=== PATIENT | female | born 1965 | race African-American/Black ===

== ENCOUNTER 2018-08-26 12:56 | Inpatient (IN) | payer BC ==
[~2018-08-26] VITALS: Ht 162.6 cm; Wt 88.9 kg
[2018-08-26] MEDS ORDERED: METHYLPREDNISOLONE SOD SUCC 125 MG/2 ML VIAL IV STA (13:21)
[2018-08-26] MEDS ORDERED: IPRATROPIUM BROMIDE (0.02%) 0.5MG/2.5ML NEB HHN STA (13:21)
[2018-08-26] MEDS ORDERED: ALBUTEROL (0.083%) 2.5MG/3ML NEB HHN STA (13:21)
[2018-08-26] MEDS ORDERED: ADENOSINE 3 MG/ML 2ML VIAL IV ONE (14:10)
[2018-08-26 15:13] LABS: BASOPHILS % 0.4 % (0.0-2.0); EOSINOPHILS % 0.3 % (0.0-5.0); HEMATOCRIT. 42.7 % (36.0-48.0); HEMOGLOBIN. 14.4 g/dL (12.0-16.0); LYMPHOCYTES % 8.2 % (20.0-50.0); MEAN CORPUSCULAR HEMOGLOBIN 28.1 pg (28.0-32.0); MEAN CORPUSCULAR VOLUME 83.6 fL (81.0-99.0); MEAN PLATELET VOLUME 8.9 fl (7.4-10.4); MONOCYTES % 7.6 % (2.0-8.0); NEUTROPHILS % 83.5 % (40.0-76.0); PLATELET 266 x1000/uL (130-400); RED BLOOD CELL COUNT 5.11 mill/uL (4.2-5.4); RED CELL DISTRIBUTION WIDTH 14.3 % (11.6-14.6)
[2018-08-26 15:21] LABS: CHLORIDE 110 mEq/L (98-107)
[2018-08-26 15:31] LABS: HCG SCREEN NEGATIVE
[2018-08-26] MEDS ORDERED: AZTREONAM 2 GM in DEXT 5% WATER 100 ML IV SCH (15:45)
[2018-08-26] MEDS: POTASSIUM CHLORIDE 20MEQ TABLET SR PO NR ×2 (15:45→17:04)
[2018-08-26] MEDS ORDERED: VANCOMYCIN 5MG/ML SYR IV ONE (15:45)
[2018-08-26] MEDS ORDERED: SODIUM CHLORIDE 0.9% 1000ML BAG (SEPSIS BOLUS) IV ONE (15:45)
[2018-08-26] MEDS ORDERED: VANCOMYCIN 1,750 MG in DEXT 5% WATER 250 ML IV NR (16:00)
[2018-08-26] MEDS ORDERED: SODIUM CHLORIDE 0.9% 2,100 ML IV SCH (16:00)
[2018-08-26] MEDS ORDERED: ASPIRIN 325MG EC TABLET PO ONE (16:15)
[2018-08-26 20:00] VITALS: BP 130/69
[2018-08-26] MEDS ORDERED: VANCOMYCIN 1 G PREMIX 200 ML IV SCH (20:45)
[2018-08-26 20:47] LABS: CLARITY URINE CLEAR (CLEAR); COLOR URINE YELLOW (YELLOW); KETONES URINE NEGATIVE (NEGATIVE); LEUKOCYTE ESTERASE URINE NEGATIVE (NEGATIVE); NITRITE URINE NEGATIVE (NEGATIVE); OCCULT BLOOD URINE 1+ (NEGATIVE); PROTEIN URINE NEGATIVE (NEGATIVE); SPECIFIC GRAVITY URINE 1.007 (1.005-1.030); UROBILINOGEN URINE 0.2 E.U./dL (0.2-1.0)
[2018-08-26] MEDS: IPRATROPIUM/ALBUTEROL 0.5-3(2.5)MG/3ML NEB HHN SCH (21:07)
[2018-08-26] MEDS ORDERED: IPRATROPIUM/ALBUTEROL 0.5-3(2.5)MG/3ML NEB ONE (21:10)
[2018-08-26] MEDS ORDERED: IPRATROPIUM/ALBUTEROL 0.5-3(2.5)MG/3ML NEB HHN NR (21:15)
[2018-08-26 21:31] VITALS: BP 130/69
[2018-08-26] MEDS: BENZONATATE 100MG CAPSULE PO PRN (21:48)
[2018-08-26] MEDS: METHYLPREDNISOLONE SOD SUCC 40 MG/ML VIAL IV SCH (21:49)
[2018-08-26] MEDS: ENOXAPARIN 40MG/0.4ML SYR SUBCUT SCH (21:49)
[2018-08-26 22:00] VITALS: BP 128/69
[2018-08-26] MEDS: LORAZEPAM 1MG TABLET PO PRN (22:54)
[2018-08-26] MEDS: FAMOTIDINE 20MG TABLET PO SCH (22:54)
[2018-08-26] MEDS: CEFEPIME 1,000 MG in DEXTROSE 5% WATER 50 ML IV SCH (23:18)
[2018-08-27] VITALS (11 sets, daily range): BP systolic 94–159; BP diastolic 53–83
[2018-08-27] MEDS ORDERED: VANCOMYCIN 750 MG PREMIX 150 ML IV SCH (01:00)
[2018-08-27 06:39] LABS: BASOPHILS % 0.1 % (0.0-2.0); HEMATOCRIT. 39.3 % (36.0-48.0); HEMOGLOBIN. 13.4 g/dL (12.0-16.0); LYMPHOCYTES % 9.5 % (20.0-50.0); MEAN CORPUSCULAR HEMOGLOBIN 28.3 pg (28.0-32.0); MEAN CORPUSCULAR VOLUME 83.1 fL (81.0-99.0); MEAN PLATELET VOLUME 8.8 fl (7.4-10.4); MONOCYTES % 3.8 % (2.0-8.0); NEUTROPHILS % 86.6 % (40.0-76.0); PLATELET 279 x1000/uL (130-400); RED BLOOD CELL COUNT 4.73 mill/uL (4.2-5.4); RED CELL DISTRIBUTION WIDTH 14.1 % (11.6-14.6)
[2018-08-27 07:05] LABS: CHLORIDE 108 mEq/L (98-107)
[2018-08-27 07:22] LABS: LDL CHOLESTEROL 105 mg/dL (5-100)
[2018-08-27 07:24] LABS: HDL CHOLESTEROL 44 mg/dL (40-59)
[2018-08-27] MEDS: IPRATROPIUM/ALBUTEROL 0.5-3(2.5)MG/3ML NEB HHN SCH ×3 (07:45→21:12)
[2018-08-27] MEDS: METHYLPREDNISOLONE SOD SUCC 40 MG/ML VIAL IV SCH ×3 (07:47→21:04)
[2018-08-27] MEDS: BENZONATATE 100MG CAPSULE PO PRN (08:11)
[2018-08-27] MEDS: FAMOTIDINE 20MG TABLET PO SCH ×2 (08:26→20:45)
[2018-08-27] MEDS: CEFEPIME 1,000 MG in DEXTROSE 5% WATER 50 ML IV SCH ×2 (08:36→20:45)
[2018-08-27] MEDS ORDERED: BUTALBITAL/ACETAMINOPHEN/CAFFEINE 50/325/40MG TABLET PO PRN (08:45)
[2018-08-27] MEDS ORDERED: GUAIFENESIN/DM 600MG/30MG ER TAB 12HR PO SCH (09:00)
[2018-08-27] MEDS ORDERED: ENOXAPARIN 40MG/0.4ML SYR SUBCUT SCH (09:00)
[2018-08-27] MEDS: VANCOMYCIN 1 G PREMIX 200 ML IV SCH ×2 (09:21→21:39)
[2018-08-27] MEDS: LORAZEPAM 1MG TABLET PO PRN (11:07)
[2018-08-27] MEDS ORDERED: LORAZEPAM 1MG TABLET PO PRN (14:00)
[2018-08-27] MEDS: PROMETHAZINE/DEXTROMETHORPHAN 6.25-15MG/5ML BOTTLE 120ML PO PRN ×2 (14:24→20:45)
[2018-08-27] MEDS: ENOXAPARIN 40MG/0.4ML SYR SUBCUT SCH (20:45)
[2018-08-28] VITALS (9 sets, daily range): BP systolic 92–135; BP diastolic 60–96
[2018-08-28] MEDS: IPRATROPIUM/ALBUTEROL 0.5-3(2.5)MG/3ML NEB HHN SCH ×2 (00:45→08:58)
[2018-08-28 06:43] LABS: CHLORIDE 109 mEq/L (98-107)
[2018-08-28 06:45] LABS: BASOPHILS % 0.1 % (0.0-2.0); HEMATOCRIT. 38.8 % (36.0-48.0); LYMPHOCYTES % 8.3 % (20.0-50.0); MEAN CORPUSCULAR VOLUME 83.9 fL (81.0-99.0); MEAN PLATELET VOLUME 8.8 fl (7.4-10.4); NEUTROPHILS % 85.6 % (40.0-76.0); PLATELET 279 x1000/uL (130-400); RED BLOOD CELL COUNT 4.63 mill/uL (4.2-5.4); RED CELL DISTRIBUTION WIDTH 14.5 % (11.6-14.6)
[2018-08-28] MEDS: METHYLPREDNISOLONE SOD SUCC 40 MG/ML VIAL IV SCH (06:50)
[2018-08-28] MEDS: BENZONATATE 100MG CAPSULE PO PRN (07:30)
[2018-08-28] MEDS: CEFEPIME 1,000 MG in DEXTROSE 5% WATER 50 ML IV SCH (08:04)
[2018-08-28] MEDS: VANCOMYCIN 1 G PREMIX 200 ML IV SCH (09:17)
[2018-08-28] MEDS: FAMOTIDINE 20MG TABLET PO SCH (09:17)
[2018-08-28] MEDS ORDERED: IOHEXOL-350 100 ML BOTTLE ONE (14:01)
[2018-08-28] MEDS ORDERED: VANCOMYCIN 1250MG in DEXTROSE 5% WATER 250ML IV SCH (17:00)
== END 2018-08-28 14:21 | disposition short-term general hospital (02) | DRG 872 ==
LOC: ER 13:25 → 3WST 16:53 → ENRESERV 17:35
PROVIDERS: ADMIT Internal Medicine Critical Care Medicine; ATTEND Internal Medicine Critical Care Medicine
PROC: 5A2204Z Restoration of Cardiac Rhythm, Single (ICD-10-PCS; principal; 2018-08-26)
DX: A41.9 Sepsis, unspecified organism (principal); I47.1 Supraventricular tachycardia; E87.2 Acidosis; F17.210 Nicotine dependence, cigarettes, uncomplicated; J02.9 Acute pharyngitis, unspecified; J45.909 Unspecified asthma, uncomplicated; Z86.711 Personal history of pulmonary embolism; Z88.1 Allergy status to other antibiotic agents; Z88.8 Allergy status to other drugs, medicaments and biological substances; Z87.01 Personal history of pneumonia (recurrent)
CPT/HCPCS: 36415; 71045; 71275; 80048; 80053; 80061; 80202; 81003; 83036; 83520; 83605; 83690; 83880; 84439; 84484; 84703; 85025; 85379; 87040; 93005; 93970; 94640; 96374; 96375; 99291; J0153; J0692; J1650; J2920; J2930; J3370; J3490; J7030; J7050; J7060; J7611; J7620; Q9967